=== PATIENT | female | born 1985 | race Hispanic/Latino ===

== ENCOUNTER 2021-04-17 06:04 | Emergency (ER) | payer BC ==
[~2021-04-17] VITALS: Ht 157.5 cm; Wt 81.6 kg
[2021-04-17] MEDS ORDERED: SODIUM CHLORIDE 0.9% 200 ML ONE (06:57)
[2021-04-17] MEDS ORDERED: CASIRIVIMAB/IMDEVIMAB 10 ML in SODIUM CHLORIDE 0.9% 100 ML IV ONE (07:00)
[2021-04-17] MEDS ORDERED: ACETAMINOPHEN 325 MG TAB PO ONE (07:00)
== END 2021-04-17 08:22 | disposition home or self-care (01) ==
LOC: ER 06:38
DX: O98.513 Other viral diseases complicating pregnancy, third trimester (principal); U07.1 COVID-19
CPT/HCPCS: 99283; J7050